=== PATIENT | female | born 1945 | race Caucasian/White ===

== ENCOUNTER 2018-07-13 21:27 | Inpatient (IN) | payer MEDICARE, OTHER ==
[2018-07-13] MEDS ORDERED: NS 0.9% 1000 ML* 2,000 ML IV ONE (22:39)
--- NOTE | 2018-07-13 22:39 | ED ---
Complex/Multi-Sys Presentation - HPI Summary HPI Summary: Patient is a 72 y/o F BIBA w/ c/o "not feeling well" for the past several weeks. Hx of diabetes, HTN, poor ambulation and "weak knees" is reported. Patient's daughter, who is present in the room, reports patient has been having increased difficulty getting up, decreased vision, polyuria, and increased thirst. She also notes that patient "slid" yesterday, and patient has been experiencing right shoulder ache. High BG is also reported, with patient believing it to have been +500. On triage, associated severity is rated 5/10, nothing is note to aggravate/alleviate Sx. Home medications and allergies reviewed. However, patient reports she has not been taking her medications for a year. In room, BP is 222/125, pulse is 90. - History Of Current Complaint Chief Complaint: EDGeneral Time Seen by Provider: 07/13/18 22:23 Hx Obtained From: Patient Onset/Duration: Lasting Weeks - "not feeling well" for the past several weeks, Still Present Timing: Constant, Weeks Severity Currently: Moderate - 5/10 on triage Location: Pain At: - right shoulder Aggravating Factor(s): nothing Alleviating Factor(s): nothing Associated Signs And Symptoms: Positive: Other - "not feeling well", increased difficulty getting up, decreased vision, polyuria, increased thirst, right shoulder ache - Allergies/Home Medications Allergies/Adverse Reactions: Allergies Allergy/AdvReac Type Severity Reaction Status Date / Time iodine Allergy Unknown Verified 07/13/18 21:47 Reaction Details Penicillins Allergy Unknown Verified 07/13/18 21:47 Reaction Details Home Medications: Home Medications Amlodipine Besylate [Norvasc 10 mg tab] 10 mg PO 1200 07/13/18 [History Confirmed 07/14/18] Atenolol TAB* [Tenormin TAB* 50 MG] 50 mg PO 2100 07/13/18 [History Confirmed ] Atorvastatin* [Lipitor*] 40 mg PO 2100 07/13/18 [History Confirmed 07/14/18] Lisinopril [Zestril 20 MG-] 20 mg PO 0600 07/13/18 [History Confirmed 07/14/18] Metformin HCl [Metformin HCl ER] 750 mg PO QAM 07/13/18 [History Confirmed 07/14] Spironolactone [Aldactone 25 MG-] 25 mg PO 0600 07/13/18 [History Confirmed ] PMH/Surg Hx/FS Hx/Imm Hx Sensory History: Denies: Hx Legally Blind, Hx Deafness Opthamlomology History: Denies: Hx Legally Blind EENT History: Denies: Hx Deafness - Cancer History Hx Chemotherapy: No Hx Radiation Therapy: No Infectious Disease History: No Infectious Disease History: Denies: Traveled Outside the [place] in Last 30 Days - Family History Known Family History: Negative: Blood Disorder - Social History Alcohol Use: None Substance Use Type: Reports: None Smoking Status (MU): Never Smoked Tobacco Review of Systems Positive: Other - "not feeling well", increased thirst, high BG Positive: Other - decreased vision Positive: other - polyuria Positive: Other - increased difficulty getting up, right shoulder ache All Other Systems Reviewed And Are Negative: Yes Physical Exam - Summary Physical Exam Summary: VITAL SIGNS: Reviewed. GENERAL: Patient is a well-developed and morbidly obese female who is lying comfortable in the stretcher. Patient is not in any acute respiratory distress. HEAD AND FACE: No signs of trauma. No ecchymosis, hematomas or skull depressions. No sinus tenderness. EYES: PERRLA, EOMI x 2, No injected conjunctiva, no nystagmus. EARS: Hearing grossly intact. Ear canals and tympanic membranes are within normal limits. MOUTH: Oropharynx within normal limits. NECK: Supple, trachea is midline, no adenopathy, no JVD, no carotid bruit, no c- spine tenderness, neck with full ROM. CHEST: Symmetric, no tenderness at palpation LUNGS: Clear to auscultation bilaterally. No wheezing or crackles. CVS: Regular rate and rhythm, S1 and S2 present, no murmurs or gallops appreciated. ABDOMEN: Soft, non-tender. Abdomen is distended. No rebound no guarding, and no masses palpated. Bowel sounds are normal. EXTREMITIES: Decreased range of motion at BLE secondary to knee pain; no edema, no cyanosis or clubbing. NEURO: Alert and oriented x 3. No acute neurological deficits. Speech is normal and follows commands. SKIN: Dry and warm Triage Information Reviewed: Yes Vital Signs On Initial Exam: Initial Vitals Resp 14 07/13/18 21:37 Vital Signs Reviewed: Yes Diagnostics - Vital Signs Vital Signs Temp Pulse Resp BP Pulse Ox 07/13/18 21:41 93 10 190/122 98 07/13/18 21:40 98.2 F 92 16 209/119 96 07/13/18 21:39 94 30 209/119 99 07/13/18 21:38 96 16 195/159 97 07/13/18 21:37 14 - Laboratory Result Diagrams: 07/13/18 22:51 07/13/18 22:51 Lab Statement: Any lab studies that have been ordered have been reviewed, and results considered in the medical decision making process. - Radiology CXR Xray Interpretation: No Acute Changes Radiology Interpretation Completed By: ED Physician - no acute process, pending ED physician - EKG 2308 Cardiac Rate: NL - rate of 74 BPM EKG Rhythm: Sinus Rhythm EKG Interpretation: RBBB, no acute ischemic changes Re-Evaluation - Re-Evaluation First Eval Re-Evaluation Time: 23:49 Comment: Admission was discussed with patient. Patient understands and is agreeable with being admitted to [facility] for further workup. Complex Multi-Symp Course/Dx Assessment/Plan: Patient is a 72 y/o F BIBA w/ c/o "not feeling well" for the past several weeks. Hx of diabetes, HTN, poor ambulation and "weak knees" is reported. Patient's daughter, who is present in the room, reports patient has been having increased difficulty getting up, decreased vision, polyuria, and increased thirst. She also notes that patient "slid" yesterday, and patient has been experiencing right shoulder ache. High BG is also reported, with patient believing it to have been +500. On triage, associated severity is rated 5/10, nothing is note to aggravate/alleviate Sx. Home medications and allergies reviewed. However, patient reports she has not been taking her medications for a year. In room, BP is 222/125, pulse is 90. Physical exam showed patient is morbidly obese, has a distended abdomen, and decreased range of motion at BLE secondary to knee pain. During ED course, patient was given fluids, Potassium Chloride 40 meq PO, Zofran 8 mg IV ONCE, Trandate 20 mg IV PUSH ED ONCE, and insulin regular 10 units IV PUSH ONCE. CXR showed no acute process. EKG revealed normal sinus rate and rhythm of 74 BPM, RBBB and no acute ischemic changes. Bloodwork showed VBG pCO2 38, VBG o2 sat 81, VBG base excess -.3. Glucose was 553, lactic acid 2.5, CRP 10.16, AST 10, anion gap 12, potassium 3.3. Patients case was discussed with Dr. Sanchez at 0000. He accepts patient for admission to [facility]. Admission was discussed with patient. Patient understands and is agreeable with being admitted to [facility] for further workup. Dx of hyperglycemia and HTN. - Diagnoses Provider Diagnoses: HTN (hypertension), Hyperglycemia - Physician Notifications Discussed Care Of Patient With: Osei Mejía Time Discussed With Above Provider: 00:00 Instructed by Provider To: Other - Patient's case was discussed with Dr. Mejía at 0000. Dr. Mejía accepts patient for admission to [facility] Discharge - Sign-Out/Discharge Documenting (check all that apply): Patient Departure - admit - Discharge Plan Condition: Fair Disposition: ADMITTED TO [facility] - Attestation Statements Document Initiated by Scribe: Yes Documenting Scribe: Jaylon Charles Provider For Whom Scribe is Documenting (Include Credential): Gabriella Ball MD Scribe Attestation: Jaylon Foster , scribed for Gabriella Ball MD on 07/14/18 at 0146.
[2018-07-13] MEDS ORDERED: Insulin REGULAR(*) 1 UNITS UNIT IV PUSH ONE (22:40)
[2018-07-13] MEDS ORDERED: Labetalol IV* 5 MG/ML 20 ML VIAL IV PUSH ONE (22:40)
[2018-07-13 23:03] LABS: ABS Basophils 0 10^3/ul (0-0.2); ABS Eosinophils 0.1 10^3/ul (0-0.6); ABS Monocytes 0.7 10^3/ul (0-0.8); ABS Neutrophils 8.6 10^3/ul (1.5-7.7); ABS Nucleated RBC 0 10^3/ul; Eosinophil % 0.9 % (0-6); Hematocrit 46 % (35-47); Hemoglobin 15.8 g/dl (12.0-16.0); Lymphocyte % 9.6 % (25-47); Mean Corpuscular HGB Conc 34 g/dl (31-36); Mean Corpuscular Hemoglobin 31 pg (27-31); Mean Corpuscular Volume 90 fL (80-97); Mean Platelet Volume 8.8 um3 (7.4-10.4); Nucleated Red Blood Cells % 0.1; Platelet Count 171 10^3/ul (150-450); Red Cell Distribution Width 14 % (10.5-15); White Blood Count 10.4 10^3/ul (3.5-10.8)
[2018-07-13 23:11] LABS: INR 0.87 (0.77-1.02)
[2018-07-13 23:21] LABS: EGFR Non-African American 83.9 (>60)
[2018-07-13] MEDS ORDERED: Potassium Chlor TAB* 20 MEQ TAB.ER PO ONE (23:50)
[2018-07-13] MEDS ORDERED: Ondansetron INJ* 2 MG/ML VIAL IV ONE (23:53)
--- NOTE | 2018-07-14 00:23 | HP ---
H&P (Free Text) History and Physical: PCP: Rocio Deng MD Date/Time: 07/13/2018 0015 CC: malaise HPI: Mrs Cain is a 72YO female HX DM2, HTN, HLD who stopped taking all her medications ~1 year ago because, "It was too hard to get to the doctors." She began feeling fatigue, malaise, nausea without emesis, & dizziness 2 days ago, but denies chest pain, SOB, palpitations, light-headedness, F/C, sweats, focal W /N/T, changes in bowel/bladder, headache, or other issues. Her daughter noticed she wasn't feeling well and after questioning her realized she had not been taking her medications and brought her in for evaluation which revealed uncontrolled HTN as high as 209/119 that responded well to IV labetalol 20mg and uncontrolled DM with a glucose of 553. Lactic was 2.5. PMedHx DM2 HTN HLD OA bilateral knees medical non-adherence Ambulatory Orders Amlodipine Besylate [Norvasc 10 mg tab] 10 mg PO 1200 07/13/18 Atenolol TAB* [Tenormin TAB* 50 MG] 50 mg PO 2100 07/13/18 Atorvastatin* [Lipitor*] 40 mg PO 2100 07/13/18 Lisinopril [Zestril 20 MG-] 20 mg PO 0600 07/13/18 Metformin HCl [Metformin HCl ER] 750 mg PO QAM 07/13/18 Spironolactone [Aldactone 25 MG-] 25 mg PO 0600 07/13/18 Allergies iodine Allergy (Verified 07/13/18 21:47) Unknown Reaction Details Penicillins Allergy (Verified 07/13/18 21:47) Unknown Reaction Details PSurgHx denies SocHx: no tobacco, rare alcohol, no recreational drugs; lives with her ; full code status FamHx: Mother passed at 59 2nd CHF. Father passed at 51 2nd lung CA. Younger brother has DM. Older Brother has DM & CAD/WA. Sister has Arnold-Chiari syndrome. ROS: as above, otherwise reviewed and all were negative vitals: Vital Signs Temp 36.4 C 07/14/18 01:13 Pulse 86 07/14/18 01:13 Resp 18 07/14/18 01:13 BP 185/86 07/14/18 01:13 Pulse Ox 94 07/14/18 01:13 Intake & Output 07/13/18 07/13/18 07/14/18 11:59 23:59 11:59 Intake Total 4000 Balance 4000 Weight 95.254 kg 118.643 kg Intake: IV Fluids 1999 IVPB 1999 Constitutional: NAD, normally developed, morbidly obese white female HEENM: atraumatic; sclera/conjunctiva: anicteric/clear; hearing: clinically intact; oropharynx: clear, mucosa moist Neck: soft tissue: no nuchal rigidity; thyroid: normal Pulmonary: clear to auscultation bilaterally, good aeration, no accessory muscle use CV: RR/RR, normal S1S2, no carotid bruit, no jugular venous distention, 2+ B DP/ PT, trace BLE edema Abdominal: soft, non-distended, non-tender, no rebound/guarding/rigidity, normoactive bowel sounds, no hepatosplenomegaly or masses, no costovertebral angle tenderness Musculoskeletal: general: grossly intact, non-tender Integumental: red moist rash L inframammary; otherwise normal appearance and texture of exposed skin Psychiatric orientation: AA&O to PPS affect: calm mood: cooperative eye contact: poor content: seemingly reliable responses: timely insight: poor Testing: Lab Results 07/13/18 07/13/18 07/13/18 Range/Units 22:51 22:51 22:51 WBC 10.4 (3.5-10.8) 10^3/ul RBC 5.10 (4.00-5.40) 10^6/ul Hgb 15.8 (12.0-16.0) g/dl Hct 46 (35-47) % MCV 90 (80-97) fL MCH 31 (27-31) pg MCHC 34 (31-36) g/dl RDW 14 (10.5-15) % Plt Count 171 (150-450) 10^3/ul MPV 8.8 (7.4-10.4) um3 Neut % (Auto) 82.5 (38-83) % Lymph % (Auto) 9.6 L (25-47) % [place] % (Auto) 6.6 (0-7) % Eos % (Auto) 0.9 (0-6) % Baso % (Auto) 0.4 (0-2) % Absolute Neuts (auto) 8.6 H (1.5-7.7) 10^3/ul Absolute Lymphs (auto) 1.0 (1.0-4.8) 10^3/ul Absolute Monos (auto) 0.7 (0-0.8) 10^3/ul Absolute Eos (auto) 0.1 (0-0.6) 10^3/ul Absolute Basos (auto) 0 (0-0.2) 10^3/ul Absolute Nucleated RBC 0 10^3/ul Nucleated RBC % 0.1 INR (Anticoag Therapy) 0.87 (0.77-1.02) APTT 26.5 (26.0-36.3) seconds VBG pH (7.33-7.43) VBG pCO2 (41-51) mmHg VBG pO2 (35-45) mmHg VBG HCO3 (24-28) mmol/L VBG O2 Saturation (70-80) % VBG Base Excess (0-4) Sodium 137 (135-145) mmol/L Potassium 3.3 L (3.5-5.0) mmol/L Chloride 102 (101-111) mmol/L Carbon Dioxide 23 (22-32) mmol/L Anion Gap 12 H (2-11) mmol/L BUN 13 (6-24) mg/dL Creatinine 0.69 (0.51-0.95) mg/dL Est GFR ( Amer) 101.5 (>60) Est GFR (Non-Af Amer) 83.9 (>60) BUN/Creatinine Ratio 18.8 (8-20) Glucose 553 H* (70-100) mg/dL Lactic Acid (0.5-2.0) mmol/L Calcium 9.3 (8.6-10.3) mg/dL Total Bilirubin 0.60 (0.2-1.0) mg/dL AST 10 L (13-39) U/L ALT 13 (7-52) U/L Alkaline Phosphatase 98 (34-104) U/L Troponin I 0.01 (<0.04) ng/mL C-Reactive Protein 10.16 H (<8.01) mg/L Total Protein 6.9 (6.4-8.9) g/dL Albumin 3.8 (3.2-5.2) g/dL Globulin 3.1 (2-4) g/dL Albumin/Globulin Ratio 1.2 (1-3) 07/13/18 07/13/18 Range/Units 22:51 22:51 WBC (3.5-10.8) 10^3/ul RBC (4.00-5.40) 10^6/ul Hgb (12.0-16.0) g/dl Hct (35-47) % MCV (80-97) fL MCH (27-31) pg MCHC (31-36) g/dl RDW (10.5-15) % Plt Count (150-450) 10^3/ul MPV (7.4-10.4) um3 Neut % (Auto) (38-83) % Lymph % (Auto) (25-47) % [place] % (Auto) (0-7) % Eos % (Auto) (0-6) % Baso % (Auto) (0-2) % Absolute Neuts (auto) (1.5-7.7) 10^3/ul Absolute Lymphs (auto) (1.0-4.8) 10^3/ul Absolute Monos (auto) (0-0.8) 10^3/ul Absolute Eos (auto) (0-0.6) 10^3/ul Absolute Basos (auto) (0-0.2) 10^3/ul Absolute Nucleated RBC 10^3/ul Nucleated RBC % INR (Anticoag Therapy) (0.77-1.02) APTT (26.0-36.3) seconds VBG pH 7.41 (7.33-7.43) VBG pCO2 38 L (41-51) mmHg VBG pO2 43 (35-45) mmHg VBG HCO3 24.1 (24-28) mmol/L VBG O2 Saturation 81.0 H (70-80) % VBG Base Excess -0.3 L (0-4) Sodium (135-145) mmol/L Potassium (3.5-5.0) mmol/L Chloride (101-111) mmol/L Carbon Dioxide (22-32) mmol/L Anion Gap (2-11) mmol/L BUN (6-24) mg/dL Creatinine (0.51-0.95) mg/dL Est GFR ( Amer) (>60) Est GFR (Non-Af Amer) (>60) BUN/Creatinine Ratio (8-20) Glucose (70-100) mg/dL Lactic Acid 2.5 H* (0.5-2.0) mmol/L Calcium (8.6-10.3) mg/dL Total Bilirubin (0.2-1.0) mg/dL AST (13-39) U/L ALT (7-52) U/L Alkaline Phosphatase (34-104) U/L Troponin I (<0.04) ng/mL C-Reactive Protein (<8.01) mg/L Total Protein (6.4-8.9) g/dL Albumin (3.2-5.2) g/dL Globulin (2-4) g/dL Albumin/Globulin Ratio (1-3) ECG, personally reviewed: sinus RBBB rate 74, diffuse T-wave inversions; similar but more pronounced that on stress test dated 01/15/2010 CXR, personally reviewed: no acute process Impression: 72F HX DM2, HTN, HLD presents after prolonged medical non-adherence with malaise in setting of severely uncontrolled HTN & DM DIAGNOSIS & PLAN Primary severely uncontrolled HTN & DM : restart ambulatory meds : check A1c : insulin carb ratio diet : ACHS glucometry w/ basal/bolus/correctional insulin : PT/OT evaluations : supportive care HLD : restart atorvastatin : check lipids in AM Admission Rational: Inpatient as without the above interventions the risk of impending adverse outcome is unacceptably high; inappropriate for the outpatient setting DVTp: SCDs & heparin SQ Code Status: full HCP:
[2018-07-14] MEDS ORDERED: Melatonin 3 MG TAB PO PRN (00:25)
[2018-07-14] MEDS: Insulin GLARGINE(*) 1 UNITS UNIT SUBCUT SCH ×2 (01:16→21:41)
[2018-07-14] MEDS: Ondansetron ODT TAB* 4 MG PO PRN ×3 (01:18→16:16)
[2018-07-14] MEDS: Acetaminophen TAB* 325 MG PO PRN ×2 (01:52→16:17)
[2018-07-14] MEDS: NS 0.9% 1000 ML* 1,000 ML IV SCH (01:53)
[2018-07-14] MEDS: Nystatin TOP POWDER* 15 GM BTL TOPICAL SCH ×4 (03:11→21:45)
[2018-07-14] MEDS: traMADol TAB* 50 MG PO PRN (03:24)
[2018-07-14] MEDS: Omeprazole CAP* 20 MG PO SCH (05:18)
[2018-07-14] MEDS: Heparin VIAL(*) 5000 UNITS/ML VIAL (FIVE THOUSAND) SUBCUT SCH ×3 (05:18→21:42)
[2018-07-14] MEDS ORDERED: Lisinopril TAB* 10 MG PO SCH (06:00)
[2018-07-14] MEDS ORDERED: Spironolactone TAB* 25 MG PO SCH (06:00)
[2018-07-14 06:51] LABS: Hematocrit 43 % (35-47); Hemoglobin 14.6 g/dl (12.0-16.0); Mean Corpuscular HGB Conc 34 g/dl (31-36); Mean Corpuscular Hemoglobin 31 pg (27-31); Mean Corpuscular Volume 90 fL (80-97); Mean Platelet Volume 8.7 um3 (7.4-10.4); Platelet Count 161 10^3/ul (150-450); Red Blood Count 4.76 10^6/ul (4.00-5.40); Red Cell Distribution Width 14 % (10.5-15); White Blood Count 13.5 10^3/ul (3.5-10.8)
[2018-07-14 07:02] LABS: EGFR Non-African American 111.3 (>60)
--- NOTE | 2018-07-14 08:00 | RAD ---
HISTORY: DKA COMPARISONS: None VIEWS: 1: frontal AP view of the chest at 11:31 PM FINDINGS: LINES AND TUBES: None. CARDIOMEDIASTINAL SILHOUETTE: The cardiomediastinal silhouette is normal for portable technique. PLEURA: The costophrenic angles are sharp. No pleural abnormalities are noted. LUNG PARENCHYMA: The lungs are clear. ABDOMEN: The upper abdomen is clear. There is no subphrenic gas. BONES AND SOFT TISSUES: No bone or soft tissue abnormalities are noted. IMPRESSION: NO ACTIVE CARDIOPULMONARY DISEASE. R0
[2018-07-14] MEDS ORDERED: Potassium Chlor TAB* 20 MEQ TAB.ER PO ONE (08:55)
[2018-07-14] MEDS ORDERED: Magnesium Sulf 4 GM/100 ML IV* 4,000 MG/100 ML BAG IVPB ONE (08:56)
[2018-07-14] MEDS ORDERED: amLODIPine TAB* 5 MG PO SCH ×3 (09:00→12:00)
[2018-07-14] MEDS ORDERED: Metformin ER (NF) 750 MG TAB.ER PO SCH (09:00)
[2018-07-14] MEDS: Insulin LISPRO* 1 UNITS UNIT SUBCUT SCH ×7 (09:19→21:41)
--- NOTE | 2018-07-14 10:01 | RAD ---
HISTORY: r/o CVA - LLQ, RUQ field cuts, vertigo COMPARISONS: None TECHNIQUE: Multiple contiguous axial CT scans were obtained of the head without intravenous contrast. FINDINGS: HEMORRHAGE/INFARCT: There is no hemorrhage or acute infarct. MASSES/SHIFT: There is no mass or shift. EXTRA-AXIAL SPACES: There are no extra-axial fluid collections. SULCI AND VENTRICLES: There is mild diffuse and proportional enlargement of the sulci and ventricles. CEREBRUM: There are no focal parenchymal abnormalities. BRAINSTEM: There are no focal parenchymal abnormalities. CEREBELLUM: There are no focal parenchymal abnormalities. VESSELS: The vessels are grossly normal. PARANASAL SINUSES: The paranasal sinuses are clear. ORBITS: The orbits are unremarkable. BONES AND SOFT TISSUE: No bone or soft tissue abnormalities are noted. OTHER: None IMPRESSION: NO ACUTE INTRACRANIAL PATHOLOGY.
[2018-07-14] MEDS ORDERED: Aspirin EC TAB* 81 MG TAB.EC PO SCH (12:00)
[2018-07-14] MEDS ORDERED: PROCHLORPERAZINE INJ 5 MG/ML 2 ML VIAL IV ONE (13:30)
[2018-07-14 14:53] LABS: Urine Appearance Cloudy; Urine Blood Negative (Negative); Urine Color Yellow; Urine Ketones 1+ (Negative); Urine Protein Negative (Negative); Urine Urobilinogen Negative (Negative)
[2018-07-14] MEDS: Aspirin 81 mg CHEW TAB* 81 MG TAB.CHEW PO SCH (16:16)
--- NOTE | 2018-07-14 16:19 | PN ---
Subjective Date of Service: 07/14/18 Interval History: This AM reporting nausea like "rocking on a boat" Also described episode before presenting where was frustrated bc she couldn't see what he was handing her. Again here she could not see the controller RN was handing her. Feels like she is choking on meds +nausea w/out emesis No blurry vision or diplopia No CP/SOB Objective Active Medications: Acetaminophen (Tylenol Tab*) 650 mg PO Q6H PRN PRN Reason: FEVER/PAIN Last Admin: 07/14/18 01:52 Dose: 650 mg Amlodipine Besylate (Norvasc Tab*) 10 mg PO 0900 [facility] Aspirin (Aspirin 81 Mg Chew Tab*) 81 mg PO DAILY [facility] Atenolol (Tenormin Tab*) 50 mg PO 2100 [facility] Atorvastatin Calcium (Lipitor*) 40 mg PO 2100 [facility] Heparin Sodium (Porcine) (Heparin Vial(*)) 5,000 units SUBCUT Q8HR [facility] Last Admin: 07/14/18 13:45 Dose: 5,000 units Sodium Chloride (Ns 0.9% 1000 Ml*) 1,000 mls @ 50 mls/hr IV PER RATE [facility] Last Admin: 07/14/18 01:53 Dose: 50 mls/hr Insulin Glargine (Lantus(*)) 15 units 0.16 units/kg (15 units) SUBCUT 2100 [facility] Stop: 07/15/18 20:00 Last Admin: 07/14/18 01:16 Dose: 15 units Insulin Human Lispro (Humalog*) 0 units SUBCUT AC [facility]; Protocol Last Admin: 07/14/18 13:44 Dose: Not Given Insulin Human Lispro (Humalog*) 0 units SUBCUT ACHS [facility]; Protocol Last Admin: 07/14/18 13:44 Dose: 9 units Lisinopril (Prinivil Tab*) 20 mg PO 0600 [facility] Melatonin (Melatonin) 3 mg PO BEDTIME PRN; Protocol PRN Reason: Sleep Metformin HCl (Glucophage*) 1,000 mg PO DAILY [facility] Nystatin (Nystatin Top Powder*) 1 applic TOPICAL TID [facility] Last Admin: 07/14/18 09:25 Dose: 1 applic Omeprazole (Prilosec Cap*) 20 mg PO DAILY@0600 [facility] Last Admin: 07/14/18 05:18 Dose: 20 mg Ondansetron HCl (Zofran Odt Tab*) 4 mg PO Q6H PRN PRN Reason: n/v Last Admin: 07/14/18 09:14 Dose: 4 mg Spironolactone (Aldactone Tab*) 25 mg PO 0600 [facility] Tramadol HCl (Ultram*) 50 mg PO Q6H PRN PRN Reason: PAIN Last Admin: 07/14/18 03:24 Dose: 50 mg Vital Signs - 8 hr 07/14/18 15:37 Temperature 99.3 F Pulse Rate 89 Respiratory 14 Rate Blood Pressure 159/89 (mmHg) O2 Sat by Pulse 98 Oximetry Oxygen Devices in Use Now: None Appearance: obese, NAD Eyes: No Scleral Icterus, PERRLA Ears/Nose/Mouth/Throat: Clear Oropharnyx, Mucous Membranes Moist Neck: NL Appearance and Movements; NL JVP, Trachea Midline Respiratory: Symmetrical Chest Expansion and Respiratory Effort, Clear to Auscultation Cardiovascular: RRR Abdominal: NL Sounds; No Tenderness; No Distention, No Hepatosplenomegaly Extremities: No Edema, No Clubbing, Cyanosis Skin: No Rash or Ulcers Neurological: Alert and Oriented x 3, - - mild drift left arm, field cut LLQ and RUQ, equal strength, rapid-alternating movements wnl. unable to ambulate Result Diagrams: 07/14/18 06:29 07/14/18 06:29 Assess/Plan/Problems-Billing Assessment: 72 yo F h/o HTN, DM2, HLD who stopped all medications 1 yr [employer] p/w malaise and nausea found with hyperglycemia, hypertensive urgency and concern for CVA - Patient Problems (1) Vertigo Comment: concern for posterior CVA Appreciate neuro c/s ASA 81 - I will reevaluate plavix after MRI I discussed MRI with litigation associate radiology. Deemed not to be emergency and MRI team not called in on the weekend for this patient alone. MRI pending, check MRA head given iodine allergy Carotid dopplers TTE w/ Bubble Permissive HTN Neuro check q4hr Swallow eval, PT eval Lipid and DM2 treatment (2) Hypertensive urgency Comment: start norvasc, atenolol, lisinopril (holding for SBP <160 to allow for permissive HTN prior to MRI) (3) DM2 (diabetes mellitus, type 2) Comment: HbA1c 12.1% Lantus 15 U tonight 07/14 Lispro 1:10 carb counting and high dose corrective SS Consult for endocrinology when available Metformin 1000mg. Titrate up bsaed on tolerance (4) Hyperlipemia Comment: Lipitor (5) DVT prophylaxis Comment: HSQ
[2018-07-14] MEDS ORDERED: Atenolol TAB* 50 MG PO SCH (21:00)
[2018-07-14] MEDS: Atorvastatin* 40 MG TAB PO SCH (21:40)
[2018-07-14] MEDS: Atenolol TAB* 50 MG PO SCH (21:40)
--- NOTE | 2018-07-14 21:50 | CONS ---
AMENDED REPORT NOW INCLUDES DATE OF CONSULT CC: Dr. Deng * CONSULTATION REPORT: DATE OF CONSULT: 07/14/18 PATIENT OF: Dr. Dunham. HISTORY: This is a 72-year-old right-handed woman, patient of Dr. Deng with a long-standing history of diabetes type 2, hypertension, hyperlipidemia, who stopped taking her medications about a year ago. She has had a 2 to 3-day history of nausea with that diarrhea, fatigue, and dizziness. She describes dizziness differently at different times. She describes it as room spinning, sometimes a feeling of wooziness, but predominantly she feels like she is going to be thrust backwards. She notes that it is worse with changes in position, but it seems like it is just hard for her to change position and hard for her to move, and even just when sitting in the bed, she has the same degree of feeling that she is going to go backwards. She has had no headache. No diarrhea. No lightheadedness. No new numbness or weakness. She walks with a cane, a walker at home, but has not been walking in the past couple of day's time. She has had some intermittent visual symptoms, and difficulties at one point seeing what her was handing her, but this is not persistent at this time. It is unclear how rapidly these symptoms have been presented 2 or 3 days ago, but she says she is unchanged today compared to a couple of days ago. Again, she has had no weakness and numbness. She has had no chest pain, shortness of breath, or palpitations. Her initial blood pressure was as high as 209/119, and she had uncontrolled diabetes, glucose 553, and a lactose of 2.5. PAST MEDICAL HISTORY: Significant for: 1. Diabetes. 2. Hypertension. 3. Hyperlipidemia. 4. Osteoarthritis. 5. Medical nonadherence. PAST SURGICAL HISTORY: She has had no surgeries. MEDICATIONS: She has been on no medications at home, although she was suppose to be treated for her cholesterol, blood pressure, and diabetes. ALLERGIES: She is allergic to IODINE with unknown reaction and PENICILLIN. FAMILY HISTORY: Her mother at 59 due to congestive heart failure and the father at 51 from lung cancer. There is a family history for diabetes. SOCIAL HISTORY: She does not smoke. Drinks alcohol rarely. No recreational drugs. She lives with her . REVIEW OF SYSTEMS: Negative in all 14 spheres, other than the HPI. PHYSICAL EXAMINATION: Temperature 99.3, pulse 89, respirations 14, blood pressure 159/89. She is alert and oriented with normal speech and comprehension. Cranial nerves II through XII were normal other than she appeared to have a left sixth nerve palsy when looking to the left, this was mild and she noted no double vision, looking to that side. There is no nystagmus. Discs appeared sharp. [id number] was intact. She was unable to get out of bed to stand. She felt too unsteady even when sitting. She had to after a brief time hold the guard rail so she would not go backwards. Strength is 5/5, it decreased position sense in her feet. Reflexes were trace to 1 with mute to downgoing toes. There was some inconsistency, but I could not detect any field cut in any quadrant with any consistency. Chest is clear. Cardiovascular: Regular rate and rhythm. Abdomen is soft with positive bowel sounds. DIAGNOSTIC STUDIES/LAB DATA: I reviewed her CT scan, which showed some hyperlucency suggestive of mild small vessel ischemic disease, but there were no clear symptoms of stroke, tumor, or bleed. White count today was 13.5, normal platelets, hematocrit, normal INR, PTT yesterday, venous blood gas had a pCO2 of 38, and pH was 7.41. BMP today had a potassium of 3.1, glucose 371, LDL 198, triglycerides 87. Initial lactic was 2.5. Initial glucose was 553 with a hemoglobin A1c of 12.1. Normal liver function test. C-reactive protein 10.6. UA of 1+ ketones, and glucose of 3+. ASSESSMENT AND PLAN: Ghazal has had recent onset of significant instability and nausea. This seems superimposed to some sort of gait disturbance. 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 This problem could well be a cerebellar posterior fossa stroke and if it is, it has been going on for 3 days' time. I had spoken to Dr. Dunham earlier about getting an MRI scan, but apparently this has been declined by Radiology and since it is unlikely to change clinical care at this point since she has been stable for a few days' time, we will get this on Monday. Depending what that shows, we may do further workup. She is allergic to IODINE, so I would not get a CTA on her as part of this workup. If it shows stroke, we might get an MRA. In addition, this could be instead a peripheral labyrinthitis, but it does not appear that she is having room spinning per se as best I can tell, though the history is somewhat inconsistent. She also does not have clear nystagmus. The sixth nerve palsy could be acute, but if it was, I would have expected to see double vision. This may be a past issue, but it is again hard to be sure. We should send off B12, folic acid. Thank you for sharing her case. [id number]/[facility] #: [id number] LELA
[2018-07-15 05:22] LABS: ABS Basophils 0 10^3/ul (0-0.2); ABS Eosinophils 0.1 10^3/ul (0-0.6); ABS Lymphocytes 1.2 10^3/ul (1.0-4.8); ABS Monocytes 0.6 10^3/ul (0-0.8); ABS Neutrophils 6.4 10^3/ul (1.5-7.7); ABS Nucleated RBC 0 10^3/ul; Eosinophil % 0.9 % (0-6); Hematocrit 40 % (35-47); Hemoglobin 13.8 g/dl (12.0-16.0); Lymphocyte % 14.4 % (25-47); Mean Corpuscular HGB Conc 34 g/dl (31-36); Mean Corpuscular Hemoglobin 31 pg (27-31); Mean Corpuscular Volume 91 fL (80-97); Nucleated Red Blood Cells % 0.1; Platelet Count 146 10^3/ul (150-450); Red Blood Count 4.45 10^6/ul (4.00-5.40); Red Cell Distribution Width 14 % (10.5-15); White Blood Count 8.4 10^3/ul (3.5-10.8)
[2018-07-15] MEDS: NS 0.9% 1000 ML* 1,000 ML IV SCH (05:28)
[2018-07-15] MEDS: Omeprazole CAP* 20 MG PO SCH (05:30)
[2018-07-15] MEDS: Lisinopril TAB* 10 MG PO SCH (05:30)
[2018-07-15] MEDS: Spironolactone TAB* 25 MG PO SCH (05:31)
[2018-07-15] MEDS: Heparin VIAL(*) 5000 UNITS/ML VIAL (FIVE THOUSAND) SUBCUT SCH ×3 (05:32→21:24)
[2018-07-15 05:39] LABS: EGFR Non-African American 100.5 (>60)
[2018-07-15] MEDS: Insulin LISPRO* 1 UNITS UNIT SUBCUT SCH ×7 (08:31→21:23)
[2018-07-15] MEDS: amLODIPine TAB* 5 MG PO SCH (08:32)
[2018-07-15] MEDS: Aspirin 81 mg CHEW TAB* 81 MG TAB.CHEW PO SCH (08:32)
[2018-07-15] MEDS: metFORMIN* 1,000 MG TAB PO SCH (08:32)
[2018-07-15] MEDS: Nystatin TOP POWDER* 15 GM BTL TOPICAL SCH ×3 (08:33→21:24)
--- NOTE | 2018-07-15 15:55 | RAD ---
HISTORY: Field cuts/vertigo r/o cva COMPARISONS: Head CT dated July 13, 2016 TECHNIQUE: The following sequences were obtained of the head: Sagittal T1-weighted images, axial T2-weighted images, axial FLAIR images, axial susceptibility weighted images, axial T1-weighted images. Additionally, axial diffusion-weighted images were obtained with calculated apparent diffusion coefficients. FINDINGS: The study is limited by patient motion artifact. HEMORRHAGE/INFARCT: There is a punctate focus of restricted diffusion within the right putamen on axial image 17. There is a punctate focus of restricted diffusion within the right kaila at the level of the middle cerebellar peduncle on axial image 9. Elsewhere, there is no hemorrhage or acute infarct MASSES/SHIFT: There is no mass or shift. EXTRA-AXIAL SPACES/MENINGES: There are no extra-axial fluid collections. SULCI AND VENTRICLES: The sulci and ventricles are normal in size and position for the patient's stated age. CEREBRUM: There are multiple scattered small foci of elevated T2/FLAIR signal within the periventricular and subcortical white matter. BRAINSTEM: There are no focal parenchymal abnormalities. CEREBELLUM: There are no focal parenchymal abnormalities. The cerebellar tonsils are normal in size and position. SELLA: The sella is normal. PINEAL: The pineal region is clear. CP ANGLE/TEMPORAL BONES: The labyrinthine structures are grossly normal. VESSELS: Normal flow-voids are noted within the visualized vertebral vasculature. DIFFUSION ABNORMALITIES: As noted above, there are punctate foci of restricted diffusion within the right basal ganglia and right kaila. PARANASAL SINUSES/MASTOIDS: The paranasal sinuses are clear. There are small bilateral mastoid effusions. ORBITS: The orbits are unremarkable. BONES AND SOFT TISSUE: No bone or soft tissue abnormalities are noted. OTHER: None IMPRESSION: 1. PUNCTATE FOCI OF RESTRICTED DIFFUSION WITHIN THE RIGHT BASAL GANGLIA AND RIGHT KAILA CONSISTENT WITH SUBACUTE NONHEMORRHAGIC INFARCT. THE DISTRIBUTION AND APPEARANCE IS SUGGESTIVE OF EMBOLIC DISEASE. 2. ELEVATED T2/FLAIR SIGNAL IN THE PERIVENTRICULAR AND SUBCORTICAL WHITE MATTER, NONSPECIFIC BUT SUGGESTIVE OF CHRONIC SMALL VESSEL ISCHEMIA. 3. BILATERAL MASTOID EFFUSIONS.
--- NOTE | 2018-07-15 15:55 | RAD ---
HISTORY: CVA, posterior COMPARISONS: None TECHNIQUE: 3-D axial [id number] MR angiography was performed of the head to include the [place]. Multiple 3-D maximum intensity projection reconstructions are also submitted for review. FINDINGS: The study is limited by patient motion artifact. RIGHT VERTEBRAL ARTERY: The distal right vertebral artery is unremarkable, without stenosis. LEFT VERTEBRAL ARTERY: The distal left vertebral artery is unremarkable, without stenosis. DOMINANCE: The vertebral arteries are codominant. DISTAL RIGHT CERVICAL INTERNAL CAROTID ARTERY: The distal right cervical internal carotid artery is unremarkable. DISTAL LEFT CERVICAL INTERNAL CAROTID ARTERY: The distal left cervical internal carotid artery is unremarkable. INTRACRANIAL CIRCULATION: There is no aneurysm, vascular malformation, occlusion, or stenosis of the visualized intracranial circulation. The anterior communicating artery complex is clear. Bilateral posterior communicating arteries are identified. OTHER FINDINGS: None IMPRESSION: NO ANEURYSM, VASCULAR MALFORMATION, OCCLUSION, OR STENOSIS OF THE VISUALIZED INTRACRANIAL CIRCULATION.
[2018-07-15] MEDS ORDERED: Lisinopril TAB* 10 MG PO ONE (16:34)
--- NOTE | 2018-07-15 16:45 | PN ---
Subjective Date of Service: 07/15/18 Interval History: Still feels like she is "rocking on a boat" Nausea has resolved Difficulty swallowing resolved Objective Active Medications: Acetaminophen (Tylenol Tab*) 650 mg PO Q6H PRN PRN Reason: FEVER/PAIN Last Admin: 07/14/18 16:17 Dose: 650 mg Amlodipine Besylate (Norvasc Tab*) 10 mg PO 0900 [facility] Last Admin: 07/15/18 08:32 Dose: 10 mg Aspirin (Aspirin 81 Mg Chew Tab*) 81 mg PO DAILY [facility] Last Admin: 07/15/18 08:32 Dose: 81 mg Atenolol (Tenormin Tab*) 50 mg PO 2100 [facility] Last Admin: 07/14/18 21:40 Dose: 50 mg Atorvastatin Calcium (Lipitor*) 40 mg PO 2100 [facility] Last Admin: 07/14/18 21:40 Dose: 40 mg Heparin Sodium (Porcine) (Heparin Vial(*)) 5,000 units SUBCUT Q8HR [facility] Last Admin: 07/15/18 13:10 Dose: 5,000 units Insulin Glargine (Lantus(*)) 15 units 0.16 units/kg (15 units) SUBCUT 2100 [facility] Stop: 07/15/18 20:00 Last Admin: 07/14/18 21:41 Dose: 15 units Insulin Human Lispro (Humalog*) 0 units SUBCUT AC [facility]; Protocol Last Admin: 07/15/18 13:09 Dose: 3 units Insulin Human Lispro (Humalog*) 0 units SUBCUT ACHS [facility]; Protocol Last Admin: 07/15/18 13:09 Dose: 2 units Lisinopril (Prinivil Tab*) 20 mg PO 0600 [facility] Last Admin: 07/15/18 05:30 Dose: 20 mg Lisinopril (Prinivil Tab*) 20 mg PO ONCE ONE Stop: 07/15/18 16:35 Melatonin (Melatonin) 3 mg PO BEDTIME PRN; Protocol PRN Reason: Sleep Metformin HCl (Glucophage*) 1,000 mg PO DAILY [facility] Last Admin: 07/15/18 08:32 Dose: 1,000 mg Nystatin (Nystatin Top Powder*) 1 applic TOPICAL TID [facility] Last Admin: 07/15/18 08:33 Dose: 1 applic Omeprazole (Prilosec Cap*) 20 mg PO DAILY@0600 [facility] Last Admin: 07/15/18 05:30 Dose: 20 mg Ondansetron HCl (Zofran Odt Tab*) 4 mg PO Q6H PRN PRN Reason: n/v Last Admin: 07/14/18 16:16 Dose: 4 mg Spironolactone (Aldactone Tab*) 25 mg PO 0600 [facility] Last Admin: 07/15/18 05:31 Dose: 25 mg Tramadol HCl (Ultram*) 50 mg PO Q6H PRN PRN Reason: PAIN Last Admin: 07/14/18 03:24 Dose: 50 mg Vital Signs - 8 hr 07/15/18 11:53 Temperature 97.9 F Pulse Rate 69 Respiratory 18 Rate Blood Pressure 163/79 (mmHg) O2 Sat by Pulse 97 Oximetry Oxygen Devices in Use Now: None Appearance: lying flat, NAD Eyes: No Scleral Icterus, PERRLA Ears/Nose/Mouth/Throat: Clear Oropharnyx, Mucous Membranes Moist Neck: NL Appearance and Movements; NL JVP, Trachea Midline Respiratory: Symmetrical Chest Expansion and Respiratory Effort, Clear to Auscultation Cardiovascular: RRR Abdominal: NL Sounds; No Tenderness; No Distention, No Hepatosplenomegaly Lymphatic: No Cervical Adenopathy Extremities: - - non pitting edema Neurological: Alert and Oriented x 3, - - cn2-12 intact, visual osorio intact, no diplopia, no drift, intact strength - limited in LE by knee pain Result Diagrams: 07/15/18 04:53 07/15/18 04:53 Microbiology and Other Data: Microbiology 07/13/18 22:57 Aerobic Blood Culture - Preliminary Blood Venous No Growth Day 1 Anaerobic Blood Culture - Preliminary No Growth Day 1 07/13/18 22:51 Aerobic Blood Culture - Preliminary Blood Venous No Growth Day 1 Anaerobic Blood Culture - Preliminary No Growth Day 1 Assess/Plan/Problems-Billing Assessment: 72 yo F h/o HTN, DM2, HLD who stopped all medications 1 yr [employer] p/w malaise and nausea found with hyperglycemia, hypertensive urgency and CVA - Patient Problems (1) Vertigo Comment: 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 Titrate up based on tolerance (4) Hyperlipemia Comment: Lipitor (5) DVT prophylaxis Comment: HSQ
[2018-07-15] MEDS: Atenolol TAB* 50 MG PO SCH (21:17)
[2018-07-15] MEDS: Atorvastatin* 40 MG TAB PO SCH (21:24)
[2018-07-16] MEDS: Heparin VIAL(*) 5000 UNITS/ML VIAL (FIVE THOUSAND) SUBCUT SCH ×3 (05:39→21:37)
[2018-07-16] MEDS: Lisinopril TAB* 10 MG PO SCH (05:39)
[2018-07-16] MEDS: Omeprazole CAP* 20 MG PO SCH (05:40)
[2018-07-16] MEDS: Spironolactone TAB* 25 MG PO SCH (05:40)
--- NOTE | 2018-07-16 07:40 | CONSULT ---
Consult Consult: [facility] Inpatient Consult Note Date of Consult: 07/16/18 Reason for Consult: type 2 diabetes mellitus Reason for Admission: vertigo ASSESSMENT: 72 yo F with uncontrolled T2DM presenting with hypertensive urgency and dysequilibrium. Brain MRI suggests R basal ganglia infarct, possibly embolic , without other obvious vascular disease on MRA. Numerous risk factors for ASCVD and stroke, however, including T2DM and hypertension, both of which are improving at this time. Her glycemia and lipids have been previously-controlled on combination oral therapy: A1c was 8.6% and LDL 77 in April 2017. She received ~70 units total insulin in the 24 hours after admission with significant correction in hyperglycemia. She has received only metformin and correction insulin the past 24 hours and has been able to maintain BG <200 during this time. PLAN: - change to metformin *ER* 1000mg daily and continue at discharge - start glipizide XL 5mg daily and continue at discharge - start pioglitazone 15mg daily and continue at discharge SUBJECTIVE: 72 yo F with T2DM (A1c >12%), HTN and DL who presented on 07/14/18 with fatigue, malaise, nausea without emesis, & dizziness for several days. She was severely hypertensive (>200/100) and hyperglycemic (>500) in the ED and was admitted for further evaluation of cerebrovascular disease. Of note, patient states that she had discontinued her chronic medical therapy approximately 1 year ago and had stopped attending physician visits during this time. She is a patient of Dr. Deng and has been followed by Dr. Garvin in the past several years for orthopedic issues. Past Medical History: - T2DM - HTN - DL Medications Prior to Admission: (inactive) - atorvastatin - glipizide - amlodipine - atenolol - escitalopram - sertraline - spironolactone - metforming Inpatient Medications: Acetaminophen (Tylenol Tab*) 650 mg PO Q6H PRN PRN Reason: FEVER/PAIN Last Admin: 07/14/18 16:17 Dose: 650 mg Amlodipine Besylate (Norvasc Tab*) 10 mg PO 0900 [facility] Last Admin: 07/15/18 08:32 Dose: 10 mg Aspirin (Aspirin 81 Mg Chew Tab*) 81 mg PO DAILY [facility] Last Admin: 07/15/18 08:32 Dose: 81 mg Atenolol (Tenormin Tab*) 50 mg PO 2100 [facility] Last Admin: 07/15/18 21:17 Dose: Not Given Atorvastatin Calcium (Lipitor*) 40 mg PO 2100 [facility] Last Admin: 07/15/18 21:24 Dose: 40 mg Heparin Sodium (Porcine) (Heparin Vial(*)) 5,000 units SUBCUT Q8HR [facility] Last Admin: 07/16/18 05:39 Dose: 5,000 units Insulin Human Lispro (Humalog*) 0 units SUBCUT AC [facility]; Protocol Last Admin: 07/15/18 17:40 Dose: 1 units Insulin Human Lispro (Humalog*) 0 units SUBCUT ACHS [facility]; Protocol Last Admin: 07/15/18 21:23 Dose: 6 units Lisinopril (Prinivil Tab*) 20 mg PO 0600 [facility] Last Admin: 07/16/18 05:39 Dose: 20 mg Melatonin (Melatonin) 3 mg PO BEDTIME PRN; Protocol PRN Reason: Sleep Metformin HCl (Glucophage*) 1,000 mg PO DAILY [facility] Last Admin: 07/15/18 08:32 Dose: 1,000 mg Nystatin (Nystatin Top Powder*) 1 applic TOPICAL TID [facility] Last Admin: 07/15/18 21:24 Dose: Not Given Omeprazole (Prilosec Cap*) 20 mg PO DAILY@0600 [facility] Last Admin: 07/16/18 05:40 Dose: 20 mg Ondansetron HCl (Zofran Odt Tab*) 4 mg PO Q6H PRN PRN Reason: n/v Last Admin: 07/14/18 16:16 Dose: 4 mg Spironolactone (Aldactone Tab*) 25 mg PO 0600 [facility] Last Admin: 07/16/18 05:40 Dose: 25 mg Tramadol HCl (Ultram*) 50 mg PO Q6H PRN PRN Reason: PAIN Last Admin: 07/14/18 03:24 Dose: 50 mg Allergies/Intolerances: iodine, PCN Social History: lives with , no tobacco denies alcohol Family History: mother with thyroid, no diabetes Review of Systems: vertigo has improved, no recent edema, 12 system review is otherwise negative OBJECTIVE: Vital Signs: Temp Pulse Resp BP Pulse Ox 97.8 F 63 18 154/81 97 07/16/18 04:09 07/16/18 04:09 07/16/18 07:21 07/16/18 04:09 07/16/18 04:09 General: alert, pleasant, oriented, no distress, sitting upright ENT: neck supple, no thyromegaly, no bruit is heard Chest: CTAB, no wheezing or crackles CV: RRR, no murmur Abdomen: soft, non-tender Extremities: non-pitting edema, distal pulses thin but present Skin: warm, dry, no rash Neuro: grossly intact motor/sensory in extremities Psych: restricted affect, pleasant Labs: 07/15/18 04:53 07/15/18 04:53 INR (Anticoag Therapy) 0.87 (0.77-1.02) 07/13/18 22:51 APTT 26.5 seconds (26.0-36.3) 07/13/18 22:51 Total Bilirubin 0.60 mg/dL (0.2-1.0) 07/13/18 22:51 AST 10 U/L (13-39) L 07/13/18 22:51 ALT 13 U/L (7-52) 07/13/18 22:51 Alkaline Phosphatase 98 U/L (34-104) 07/13/18 22:51 Total Protein 6.9 g/dL (6.4-8.9) 07/13/18 22:51 Albumin 3.8 g/dL (3.2-5.2) 07/13/18 22:51 Globulin 3.1 g/dL (2-4) 07/13/18 22:51 Albumin/Globulin Ratio 1.2 (1-3) 07/13/18 22:51 Triglycerides 87 mg/dL 07/14/18 06:29 Cholesterol 267 mg/dL 07/14/18 06:29 LDL Cholesterol 198 mg/dL 07/14/18 06:29 HDL Cholesterol 51.4 mg/dL 07/14/18 06:29 TSH 0.44 mcIU/mL (0.34-5.60) 07/14/18 06:29 07/13/18 22:51 Troponin I 0.01
[2018-07-16] MEDS: metFORMIN* 1,000 MG TAB PO SCH (08:19)
[2018-07-16] MEDS: amLODIPine TAB* 5 MG PO SCH (08:19)
[2018-07-16] MEDS: Aspirin 81 mg CHEW TAB* 81 MG TAB.CHEW PO SCH (08:19)
[2018-07-16] MEDS: Insulin LISPRO* 1 UNITS UNIT SUBCUT SCH ×7 (08:20→21:37)
[2018-07-16] MEDS: Nystatin TOP POWDER* 15 GM BTL TOPICAL SCH ×3 (08:20→20:59)
--- NOTE | 2018-07-16 10:02 | RAD ---
INDICATION: CVA. COMPARISON: There are no relevant prior studies available for comparison. TECHNIQUE: Multiple grayscale, color and Doppler tracings of the common, internal and external carotid and vertebral arteries were obtained. Stenosis estimations reflect velocity criteria that it been correlated to angiographic stenosis calculations based on the distal internal carotid diameter. RIGHT CAROTID: There is mild plaque within the right carotid bulb and proximal internal carotid artery. The peak systolic velocity in the proximal right internal carotid artery is 69 cm/s and the maximum end-diastolic velocity is 21 cm/s. The peak systolic velocity in the distal right common carotid artery is 85 cm/s and the maximum end-diastolic velocity is 24 cm/s. The internal to common carotid artery ratio is 0.8. This would be consistent with a less than 50% stenosis. LEFT CAROTID: There is minimal plaque within the left carotid bulb and proximal internal carotid artery. The peak systolic velocity in the proximal left internal carotid artery is 81 cm/s and the maximum end-diastolic velocity is 26 cm/s. The peak systolic velocity in the distal left common carotid artery is 100 cm/s and the maximum end-diastolic velocity is 18 cm/s. The internal to common carotid artery ratio is 0.8. This would be consistent with a less than 50% stenosis. VERTEBRALS: There is antegrade flow in both vertebral arteries. IMPRESSION: THERE IS MINIMAL TO MILD PLAQUE WITHIN THE CAROTID BULBS AND PROXIMAL INTERNAL CAROTID ARTERIES. NO HEMODYNAMICALLY SIGNIFICANT STENOSIS IS SEEN. CPT II Codes: 3100F
--- NOTE | 2018-07-16 12:48 | PN ---
Subjective Date of Service: 07/16/18 Interval History: Pt feels well, although still c/o feeling like she is " on a ship" when moving. At home she ambulated with a cane and WC-has bad knees. Objective Active Medications: Acetaminophen (Tylenol Tab*) 650 mg PO Q6H PRN PRN Reason: FEVER/PAIN Last Admin: 07/14/18 16:17 Dose: 650 mg Amlodipine Besylate (Norvasc Tab*) 10 mg PO 0900 [facility] Last Admin: 07/16/18 08:19 Dose: 10 mg Aspirin (Aspirin 81 Mg Chew Tab*) 81 mg PO DAILY [facility] Last Admin: 07/16/18 08:19 Dose: 81 mg Atenolol (Tenormin Tab*) 50 mg PO 2100 [facility] Last Admin: 07/15/18 21:17 Dose: Not Given Atorvastatin Calcium (Lipitor*) 40 mg PO 2100 [facility] Last Admin: 07/15/18 21:24 Dose: 40 mg Heparin Sodium (Porcine) (Heparin Vial(*)) 5,000 units SUBCUT Q8HR [facility] Last Admin: 07/16/18 05:39 Dose: 5,000 units Insulin Human Lispro (Humalog*) 0 units SUBCUT AC [facility]; Protocol Last Admin: 07/16/18 08:20 Dose: 4 units Insulin Human Lispro (Humalog*) 0 units SUBCUT ACHS [facility]; Protocol Last Admin: 07/16/18 08:20 Dose: 3 units Lisinopril (Prinivil Tab*) 20 mg PO 0600 [facility] Last Admin: 07/16/18 05:39 Dose: 20 mg Melatonin (Melatonin) 3 mg PO BEDTIME PRN; Protocol PRN Reason: Sleep Metformin HCl (Glucophage*) 1,000 mg PO DAILY [facility] Last Admin: 07/16/18 08:19 Dose: 1,000 mg Nystatin (Nystatin Top Powder*) 1 applic TOPICAL TID [facility] Last Admin: 07/16/18 08:20 Dose: 1 applic Omeprazole (Prilosec Cap*) 20 mg PO DAILY@0600 [facility] Last Admin: 07/16/18 05:40 Dose: 20 mg Ondansetron HCl (Zofran Odt Tab*) 4 mg PO Q6H PRN PRN Reason: n/v Last Admin: 07/14/18 16:16 Dose: 4 mg Spironolactone (Aldactone Tab*) 25 mg PO 0600 [facility] Last Admin: 07/16/18 05:40 Dose: 25 mg Tramadol HCl (Ultram*) 50 mg PO Q6H PRN PRN Reason: PAIN Last Admin: 07/14/18 03:24 Dose: 50 mg Vital Signs - 8 hr 07/16/18 07/16/18 07/16/18 07:18 07:21 07:56 Temperature 98.1 F Pulse Rate 65 Respiratory 18 18 Rate Blood Pressure 170/126 161/75 (mmHg) O2 Sat by Pulse 97 100 Oximetry 07/16/18 12:08 Temperature 98.4 F Pulse Rate 86 Respiratory 18 Rate Blood Pressure 159/95 (mmHg) O2 Sat by Pulse 98 Oximetry Oxygen Devices in Use Now: None Appearance: 72 yo F in nAD, aAOx3 Eyes: No Scleral Icterus, PERRLA Ears/Nose/Mouth/Throat: NL Teeth, Lips, Gums, Mucous Membranes Moist Neck: NL Appearance and Movements; NL JVP, Trachea Midline Respiratory: Symmetrical Chest Expansion and Respiratory Effort, Clear to Auscultation Cardiovascular: NL Sounds; No Murmurs; No JVD, RRR Abdominal: NL Sounds; No Tenderness; No Distention Lymphatic: No Cervical Adenopathy Extremities: No Clubbing, Cyanosis, - - +1 nonpitting pedal edema b/l Skin: No Rash or Ulcers, No Nodules or Sclerosis Neurological: Alert and Oriented x 3, NL Muscle Strength and Tone Result Diagrams: 07/15/18 04:53 07/15/18 04:53 Microbiology and Other Data: Microbiology 07/13/18 22:57 Aerobic Blood Culture - Preliminary Blood Venous No Growth Day 1 Anaerobic Blood Culture - Preliminary No Growth Day 1 07/13/18 22:51 Aerobic Blood Culture - Preliminary Blood Venous No Growth Day 1 Anaerobic Blood Culture - Preliminary No Growth Day 1 Assess/Plan/Problems-Billing Assessment: 72 yo F h/o HTN, DM2, HLD who stopped all medications 1 yr [employer] p/w malaise and nausea found with hyperglycemia, hypertensive urgency and CVA - Patient Problems (1) Vertigo Comment: due to subacute CVA right basal ganglia and right gena that would be c/ w embolic etiology neurology following c/w ASA 81 Neuro to weigh benefit of plavix in setting of suspected embolic source Carotid dopplers neg, and TTE w/ Bubble pending Neuro check q4hr (2) DM2 (diabetes mellitus, type 2) Comment: HbA1c 12.1% Lispro ISS appreciate endocrinology consult Metformin 1000mg and AM to be cont. Pt as not taking her metformin as outpatient (3) Hyperlipemia Comment: Lipitor LDL 198 (4) Hypertensive urgency Comment: started norvasc, atenolol, lisinopril , cont to monitor (5) DVT prophylaxis Comment: HSQ Status and Disposition: Inpatient, plan for STR at d/c
--- NOTE | 2018-07-16 13:44 | ECHO ---
Patient: GILLIAN MICHELLE [facility] Rec#: [id number] : 1945 Date: 07/16/2018 Age: 72y Height: 163 cm / 64.2 in Weight: 118.6 kg / 261.4 lbs Sex: F BSA: 2.2 Room#: 432 Admit Date#: 07/14/2018 Type: Inpatient Referring: Tu uDnham MD Reading: Markel Esteban MD Buying Agent: Aby Chiu RDCS CC: Alessia Deng MD Transthoracic Echocardiogram Indication: CVA BP: 154/81 HR: 71 Rhythm: NSR Findings History: DM II, HTN, HLD, non-compliant with meds. Technical Comments: The study quality is fair. Completed at 1050. Left Ventricle: The left ventricular chamber size is normal. Mild concentric left ventricular hypertrophy is observed. There is normal left ventricular systolic function. The estimated ejection fraction is 55-60%. There is a left ventricular septal wall motion abnormality observed, possibly due to the presence of a right bundle branch block. Abnormal left ventricular diastolic function is observed. Abnormal left ventricular diastolic filling is observed, consistent with impaired relaxation. Left Atrium: The left atrium is mildly dilated. Right Ventricle: Moderator Band present. The right ventricular cavity size is normal. The right ventricular global systolic function is normal. Right Atrium: The right atrial cavity size is normal. Interatrial septum appears intact without evidence of shunting. The bubble study is negative. A patent foramen ovale is not demonstrated with color Doppler and agitated contrast. Aortic Valve: The aortic valve is trileaflet. The aortic valve leaflets are mildly thickened. There is no evidence of aortic regurgitation. There is no evidence of aortic stenosis. Mitral Valve: The mitral valve leaflets are mildly thickened. There is a trace of mitral regurgitation. There is no evidence of mitral stenosis. Tricuspid Valve: The tricuspid valve leaflets are normal. There is trace to mild tricuspid regurgitation. The right ventricular systolic pressure is estimated at 24 mmHg. No pulmonary hypertension is noted. There is no tricuspid stenosis. Pulmonic Valve: The pulmonic valve appears normal. There is a trace pulmonic regurgitation. There is no pulmonic stenosis. Pericardium: There is no significant pericardial effusion. A pericardial fat pad is visualized. Aorta: There is no dilatation of the ascending aorta. There is no dilatation of the aortic arch. The aortic root is normal in size. Pulmonary Artery: The main pulmonary artery appears normal. Venous: The inferior vena cava appears normal in size. There is a greater than 50% respiratory change in the inferior vena cava dimension. Contrast: Normal saline was used as contrast for the bubble study. Images 84 and 85. Intravenous contrast was used to help determine presence of intracardiac shunting. Summary: There was not any prior study for comparison. Conclusions Mild concentric left ventricular hypertrophy is observed. There is normal left ventricular systolic function. The estimated ejection fraction is 55-60%. There is a left ventricular septal wall motion abnormality observed, possibly due to the presence of a right bundle branch block. The right ventricular global systolic function is normal. The bubble study is negative. A patent foramen ovale is not demonstrated with color Doppler and agitated contrast. There is no evidence of aortic stenosis. There is a trace of mitral regurgitation. There is trace to mild tricuspid regurgitation. No pulmonary hypertension is noted. There is no significant pericardial effusion. Measurements Name Value Normal Range RVIDd (AP) 2D 2.7 cm (0.9 - 2.6) RVDdMajor (2D) 4.1 cm (2.2 - 4.4) RAd ISD 4CH 4.6 cm (3.4 - 4.9) RA (A4C)W 4.2 cm (2.9 - 4.6) IVSd (2D) 1.2 cm (0.6 - 1) LVPWd (2D) 1.3 cm (0.6 - 1) LVIDd (2D) 4.9 cm (3.6 - 5.4) LVIDs (2D) 3.2 cm - LV FS (2D) 34 % (25 - 45) Aortic Annulus 1.5 cm (1.4 - 2.6) Ao root diameter (2D) 3 cm (2.1 - 3.5) Ascending Ao 3.3 cm (2.1 - 3.4) Aortic arch 2.4 cm (1.8 - 3.4) LA dimension (AP) 2D 3.9 cm (2.3 - 3.8) LAd ISD 4CH 5.7 cm (2.9 - 5.3) LA ISD 4CH W 4.4 cm (2.5 - 4.5) Name Value Normal Range LA ESV BP (A/L) index 25 ml/m2 - Name Value Normal Range MV E-wave Vmax 0.6 m/sec - MV deceleration time 296 msec - MV A-wave Vmax 1 m/sec - MV E:A ratio 0.6 ratio - LV septal e' Vmax 0.04 m/sec - LV lateral e' Vmax 0.04 m/sec - LV E:e' septal ratio 15 ratio - LV E:e' lateral ratio 15 ratio - Name Value Normal Range AV Vmax 1.6 m/sec - AV VTI 28.3 cm - AV peak gradient 11 mmHg - AV mean gradient 6 mmHg - LVOT Vmax 1 m/sec - LVOT VTI 18.6 cm - LVOT peak gradient 4 mmHg - LVOT mean gradient 2 mmHg - DAR Vmax 0.6 m/sec - Name Value Normal Range TR Vmax 2.3 m/sec - TR peak gradient 21 mmHg - RAP 3 mmHg - RVSP 24 mmHg - IVC diameter 1.6 cm - Name Value Normal Range PV Vmax 1.2 m/sec - PV peak gradient 6 mmHg -
[2018-07-16] MEDS: Atorvastatin* 40 MG TAB PO SCH (20:25)
[2018-07-16] MEDS: Atenolol TAB* 50 MG PO SCH (20:25)
[2018-07-16] MEDS ORDERED: metFORMIN* 500 MG TAB PO SCH (21:00)
[2018-07-16] MEDS: Acetaminophen TAB* 325 MG PO PRN (22:01)
[2018-07-17 05:00] LABS: ABS Basophils 0 10^3/ul (0-0.2); ABS Eosinophils 0.2 10^3/ul (0-0.6); ABS Lymphocytes 1.5 10^3/ul (1.0-4.8); ABS Monocytes 0.7 10^3/ul (0-0.8); ABS Neutrophils 5.2 10^3/ul (1.5-7.7); ABS Nucleated RBC 0 10^3/ul; Eosinophil % 2.5 % (0-6); Hematocrit 43 % (35-47); Hemoglobin 14.6 g/dl (12.0-16.0); Mean Corpuscular HGB Conc 34 g/dl (31-36); Mean Corpuscular Hemoglobin 31 pg (27-31); Mean Corpuscular Volume 91 fL (80-97); Mean Platelet Volume 9.1 um3 (7.4-10.4); Nucleated Red Blood Cells % 0; Platelet Count 156 10^3/ul (150-450); Red Blood Count 4.72 10^6/ul (4.00-5.40); Red Cell Distribution Width 13 % (10.5-15); White Blood Count 7.6 10^3/ul (3.5-10.8)
[2018-07-17 05:16] LABS: EGFR Non-African American 91.5 (>60)
[2018-07-17] MEDS: Acetaminophen TAB* 325 MG PO PRN (05:21)
[2018-07-17] MEDS: traMADol TAB* 50 MG PO PRN (05:22)
[2018-07-17] MEDS: Lisinopril TAB* 10 MG PO SCH (05:23)
[2018-07-17] MEDS: Spironolactone TAB* 25 MG PO SCH (05:23)
[2018-07-17] MEDS: Heparin VIAL(*) 5000 UNITS/ML VIAL (FIVE THOUSAND) SUBCUT SCH (05:23)
[2018-07-17] MEDS: Omeprazole CAP* 20 MG PO SCH (05:23)
[2018-07-17] MEDS ORDERED: Potassium Chlor TAB* 20 MEQ TAB.ER PO ONE (07:29)
[2018-07-17] MEDS ORDERED: Clopidogrel TAB* 75 MG PO SCH (09:00)
[2018-07-17] MEDS: Insulin LISPRO* 1 UNITS UNIT SUBCUT SCH ×4 (09:20→12:56)
[2018-07-17] MEDS: Aspirin 81 mg CHEW TAB* 81 MG TAB.CHEW PO SCH (09:21)
[2018-07-17] MEDS: metFORMIN* 1,000 MG TAB PO SCH (09:21)
[2018-07-17] MEDS: amLODIPine TAB* 5 MG PO SCH (09:21)
[2018-07-17] MEDS: Nystatin TOP POWDER* 15 GM BTL TOPICAL SCH (09:21)
[2018-07-17 10:24] VITALS: BP 153/85
--- NOTE | 2018-07-17 13:14 | DS ---
CC: Dr. Leary; Dr. Deng; [facility]; Dr. Andrews * DISCHARGE SUMMARY: DATE OF ADMISSION: 07/14/18 DATE OF DISCHARGE: 07/17/18 DISPOSITION: The patient is being discharged and transferred to [facility]. PRIMARY CARE PROVIDER: Dr. Deng. DISCHARGE DIAGNOSES: 1. 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 2. Hypertensive urgency. 3. Uncontrolled diabetes due to medical noncompliance. SECONDARY DIAGNOSES: 1. History of diabetes, type 2. 2. Hypertension. 3. Dyslipidemia. 4. History of severe osteoarthritis in bilateral knees. The patient basically is wheelchair bound, she ambulates short distances with the use of a cane. DISCHARGE MEDICATIONS: 1. Aspirin 81 mg daily. 2. Plavix 75 mg daily for 1 month, then stop. 3. Amlodipine 10 mg daily. 4. Tenormin/atenolol 50 mg daily. 5. Lipitor 40 mg daily. 6. Lisinopril 20 mg daily. 7. Aldactone 25 mg daily. 8. Metformin extended release 1000 mg daily. 9. Nystatin powder in the affected areas daily. 10. Glipizide XL 5 mg daily. CONSULTATIONS DURING HOSPITAL STAY: 1. Neurology, Dr. Andrews. 2. Endocrinology, Dr. Leary. LABORATORY DATA AND STUDIES PERFORMED DURING HOSPITAL STAY: On 07/17/18, white blood cell count of , hemoglobin 14.6, hematocrit 43, and platelets 156. Sodium was 139, potassium 3.3, chloride 105, carbon dioxide 25, BUN 14, creatinine 0.64. The patient's hemoglobin A1c was 12.1 noted on 07/13/18. The patient's liver function tests obtained at admission were unremarkable. C- reactive protein on admission was 10.1. The patient's lipid profile obtained on 07/14/18 showed triglycerides of 87, total cholesterol 267, LDL 198, and HDL 51. Vitamin B12 was 241. TSH was noted to be 0.44 documented on 07/14/18. Blood cultures obtained on admission were negative for growth by the time of discharge. Transthoracic echocardiogram with bubble study obtained on 07/16/18 showed EF of 50% to 55% with normal left ventricular systolic function. There was left ventricular septal wall motion abnormality observed possibly due to presence of right bundle branch block. The bubble study was negative. There was trace mitral regurgitation and [id number] tricuspid regurgitation. Carotid Dopplers obtained on 07/16/18, impression: "There is [id number] plaque within the carotid bulb and proximal internal carotid artery. No hemodynamically significant stenosis is seen." Head MRA obtained on 07/15/18, impression: "No aneurysm, vascular malformation , occlusion, or stenosis of the visualized intracranial circulation." Brain MRI obtained on 07/15/18, impression: "Punctate foci of restricted diffusion within the right basal ganglia and right gena consistent with subacute and hemorrhagic infarct. The distribution and appearance is suggestive of embolic disease. Elevated T2/FLAIR signal in the periventricular and subcortical white matter nonspecific, but suggestive of chronic small vessel ischemia. Bilateral mastoid effusions." Brain CT obtained on 07/14/18. Impression: "No acute intracranial pathology." Chest x-ray obtained on admission. Impression: "No active cardiopulmonary disease." HOSPITALIZATION COURSE: Ms. Cain is a 72-year-old female, who decided to stop to taking all of her medications for blood pressure control and diabetes approximately a year prior to her presentation on 07/13/18 complaining of dizziness and nausea, but no emesis. The patient's systolic pressures were in the 200 range. Her glucose level was 553. She was admitted to the hospital and noted to have complaints of "feeling like on a ship" when trying to ambulate. The patient at baseline has [id number] ambulatory dysfunction due to severe osteoarthritic change to bilateral knees. She usually uses a wheelchair and she ambulates short distances with the use of a cane. During her hospital stay, her MRI of the brain was positive for subacute embolic CVA. The patient continued to be observed on telemetry monitored bed with no evidence of arrhythmia. Further investigations as noted above included MRA of the head, carotid Doppler, and transthoracic echocardiogram with bubble study, and all of them were pretty unremarkable. The patient was placed on aspirin and restarted on her metformin. She was seen by Dr. Leary in Endocrinology Consultation, who recommended starting the patient on metformin at 1000 mg a day and continued for a couple of weeks until titration of the dose. The patient was started on her Lipitor as well as her antihypertensives. By the time of discharge, the patient's systolic pressures were in the 150 range and she may require titration of her antihypertensives in the near future. Dr. Leary saw the patient in endocrinology evaluation and recommended for the patient to be on metformin ER 1000 mg daily, glipizide XL 5 mg daily, and Actos 15 mg daily. Due to the patient being on Plavix for the next month, Actos was not recommended due to interaction but the patient was started on glipizide and metformin. At the time of discharge, the patient continued on sensation of unsteadiness when she changes her position. She was deemed to be a good candidate for short- term rehabilitation and accepted at a place at [facility] for rehabilitation. PHYSICAL EXAMINATION AT THE TIME OF DISCHARGE: Blood pressure of 153/85, heart rate of 78 and regular, respiratory rate 18, oxygen saturation % on room air, temperature 98.6. General: The patient is a pleasant 72-year-old female who is in no acute distress. Alert, awake, and oriented x3. HEENT: Head, atraumatic, normocephalic. Eyes: Pupils are equal, reactive to light and accommodation. Oropharynx clear. Mucosa moist. Neck: Supple. No JVD, no bruits bilaterally. Cardiovascular: Regular rate and rhythm. No murmur. Respiratory: Clear to auscultation bilaterally. Abdomen: Soft, nontender. Bowel sounds are present in all 4 quadrants. Extremities: There is +1 nonpitting pedal edema. Pulses are +2 bilaterally. There is no clubbing or cyanosis. Neuro Evaluation: Speech clear. Cranial nerves II through XII grossly intact. Motor strength is 5/5 bilaterally. There is no nystagmus on evaluation. Psychiatric evaluation: The patient is very pleasant, cooperative with evaluation, oriented x3 with no evidence of anxiety or depression. Please note that this is a short summary of the patient's hospitalization. Please refer to further medical records for details. TIME SPENT: Approximately 45 minutes was spent on the patient's discharge. [id number]/[facility] #: [id number] [facility]
[2018-07-18] MEDS ORDERED: Lisinopril TAB* 10 MG PO SCH (06:00)
[2018-07-18] MEDS ORDERED: Pantoprazole TAB (NF) 40 MG TAB PO SCH (06:00)
== END 2018-07-17 14:00 | DRG 65 ==
LOC: ED 21:27 → MED 07-14 00:23 → MEDTELE 07-14 11:00 → OBSVTOIN 07-15 13:38
PROVIDERS: ADMIT Hospitalist; ATTEND Internal Medicine
DX: I63.12 Cerebral infarction due to embolism of basilar artery (principal); Z68.41 Body mass index [BMI] 40.0-44.9, adult; E11.65 Type 2 diabetes mellitus with hyperglycemia; E66.01 Morbid (severe) obesity due to excess calories; E11.9 Type 2 diabetes mellitus without complications; I16.0 Hypertensive urgency; E78.5 Hyperlipidemia, unspecified; M17.0 Bilateral primary osteoarthritis of knee; R42 Dizziness and giddiness; Z91.14 Patient's other noncompliance with medication regimen; Z99.3 Dependence on wheelchair; Z79.84 Long term (current) use of oral hypoglycemic drugs; Z91.09 Other allergy status, other than to drugs and biological substances; Z79.899 Other long term (current) drug therapy; Z88.0 Allergy status to penicillin; Z91.048 Other nonmedicinal substance allergy status; Z83.3 Family history of diabetes mellitus; Z82.49 Family history of ischemic heart disease and other diseases of the circulatory system; Z80.1 Family history of malignant neoplasm of trachea, bronchus and lung
CPT/HCPCS: 36415; 70450; 70544; 70551; 71045; 80048; 80053; 80061; 81003; 82607; 82803; 83036; 83605; 83735; 84443; 84484; 85025; 85027; 85610; 85730; 86140; 87040; 90686; 93005; 93306; 93880; 96374; 99285; A9270-GY; G0378; G8987-GO-CL; G8988-GO-CJ; J0780; J1644; J2405; J3475